=== PATIENT | female | born 1945 | race Asian ===

== ENCOUNTER 2016-09-09 06:09 | Inpatient (IN) | payer OTHER ==
[~2016-09-09] VITALS: Ht 162.6 cm; Wt 54.9 kg
[2016-09-09] MEDS ORDERED: PROPOFOL 200 MG/20 ML VIAL IV ONE (07:20)
[2016-09-09] MEDS ORDERED: ONDANSETRON 4 MG/2 ML VIAL IVP ONE (07:20)
[2016-09-09] MEDS ORDERED: SEVOFLURANE 250 ML BTL INH ONE (07:20)
[2016-09-09] MEDS ORDERED: BUPIVACAINE-MPF/EPI 0.5% 30 ML VIAL INJ ONE (07:20)
[2016-09-09] MEDS ORDERED: ACETAMINOPHEN/CODEINE 300/30MG 1 TAB PO PRN (07:35)
[2016-09-09] MEDS ORDERED: MORPHINE SULFATE 4 MG/ML SYR IM/IVP PRN (07:35)
[2016-09-09] MEDS ORDERED: ONDANSETRON 4 MG/2 ML VIAL IVP PRN (07:35)
[2016-09-09] MEDS ORDERED: fentaNYL 0.05 MG/ML VIAL ONE (07:37)
[2016-09-09] MEDS ORDERED: MIDAZOLAM 2 MG/2 ML VIAL ONE (07:37)
[2016-09-09] MEDS ORDERED: MORPHINE SULFATE 4 MG/ML SYR ONE (07:38)
[2016-09-09] MEDS ORDERED: LIPITOR10 MG PO (07:52)
[2016-09-09] MEDS ORDERED: IRBESARTAN300 MG PO (07:54)
[2016-09-09] MEDS ORDERED: PRECOSE25 MG PO (07:55)
[2016-09-09] MEDS ORDERED: PRANDIN1 MG PO (07:55)
[2016-09-09] MEDS ORDERED: LOPRESSOR25 MG PO (07:56)
[2016-09-09] MEDS ORDERED: NORVASC5 MG PO (07:57)
[2016-09-09] MEDS ORDERED: MORPHINE SULFATE 4 MG/ML SYR IVP PRN ×2 (08:05)
[2016-09-09] MEDS ORDERED: METOCLOPRAMIDE 10 MG/2 ML INJ VIAL IVP PRN (08:05)
[2016-09-09] MEDS ORDERED: MIDAZOLAM 2 MG/2 ML VIAL IV ONE (08:05)
[2016-09-09] MEDS ORDERED: MORPHINE SULFATE 2 MG/ML SYR IVP PRN (08:05)
--- NOTE | 2016-09-09 09:28 | NUR ---
FAXED INITIAL REVIEW TO [facility] [phone] PHONE JOLENE [phone]
--- NOTE | 2016-09-09 09:45 | NUR ---
2 OR NURSES BROUGHT PT TO THE FLOOR. S/P VAGINAL HYSTERECTOMY/ AP REPAIR. JIGNA GAVE REPORT. PT IS AWAKE AND ORIENTED. SHE SPEAKS CHINESES. DAUGHTER AND SON IN LAW AT BEDSIDE. PT IS AXOX4, USUALLY AMBULATES WITH WALKER AT HOME. WALKER IS HERE AT BEDSIDE. SHE CURRENTLY HAS A WARREN CATH, IV ON R AC 20G NS. SKIN IS INTACT. SHE IS WEARING A PAD. VERY LITTLE DRAINAGE, PINK TINTED. SCD'S IN PLACE. SHE IS WEARING GLASSES. NO DENTURES. PERSONAL BELONGINGS IN DRAWER. WANTED TO GO TO THE BATHROOM. ASSISTED PT TO THE BATHROOM. HER GAIT IS STEADY. SHE WALKED BACK TO HER BED WITH HER WALKER. PUT HER BACK IN BED. V/S WITHIN NORMAL RANGE. WILL CONTINUE TO MONITOR PT.
--- NOTE | 2016-09-09 10:20 | NUR ---
ADMINISTERED MORPHINE 3MG FOR MODERATE PAIN 12/05. PT TOLERATED WELL. WILL CONTINUE TO MONITOR PT.
--- NOTE | 2016-09-09 10:30 | NUR ---
VS: 9:45 96.8F, 126/64, 78HR, 16, 97% 10:00 96.8F, 106/59, 71 HR, 16, 96% 10:15 96.7F, 112/59, 70HR, 16, 96% 10:30 96.9F, 106/61, 53 HR, 16, 92%
[2016-09-09 10:36] VITALS: BP 126/64
[2016-09-09] MEDS ORDERED: PNEUMOCOCCAL VACCINE 23 MCG/0.5 ML VIAL IMVAC SCH (10:45)
[2016-09-09] MEDS ORDERED: INFLUENZA VIRUS VACCINE QUAD 0.5 ML SYR IMVAC PRN (10:45)
--- NOTE | 2016-09-09 11:53 | NUR ---
V/S: 11:00 97.0F, 108/64, 53, 16, 94% 11:30 97.0F, 110/64, 58, 16, 95%
--- NOTE | 2016-09-09 11:57 | NUR ---
PT SLEEPING. NO SIGNS OF DISTRESS. DAUGHTER AND SON IN LAW AT BEDSIDE. WILL CONTINUE TO MONITOR PT.
--- NOTE | 2016-09-09 12:10 | NUR ---
D/C'D WARREN CATHETER. ABOUT 600 ML IN BAG, PALE YELLOW, CLEAR. PT TOLERATED WELL. WILL CONTINUE TO MONITOR PT.
--- NOTE | 2016-09-09 13:00 | NUR ---
PT IS RESTING COMFORTABLY. NO SIGNS OF DISTRESS. DIDN'T EAT LUNCH. LITTLE BIT NAUSEATED. OFFERED HER ZOFRAN. SHE REFUSED. WILL CONTINUE TO MONITOR PT.
[2016-09-09 13:24] VITALS: BP 112/67
--- NOTE | 2016-09-09 14:29 | NUR ---
PT WAS IN PAIN, ADMINISTERED PAIN MEDS. PT TOLERATED WELL. PT NEEDED TO USE THE BATHROOM. ASSISTED PT TO THE RESTROOM. ASSISTED PT BACK TO BED.
[2016-09-09 16:00] VITALS: BP 107/53
--- NOTE | 2016-09-09 17:13 | NUR ---
NO URINE YET. CALLED DR. VARGAS. HE GAVE AN ORDER FOR WARREN REINSERTION. DAUGHTER WANTS TO WAIT AND SEE IF SHE CAN GO TO THE BATHROOM ON HER OWN. WILL WAIT UNTIL PT IS READY.
--- NOTE | 2016-09-09 17:45 | NUR ---
ADMINISTERED THE WARREN CATH. PT TOLERATED WELL. URINE FILLING UP IN WARREN BAG. WILL CONTINUE TO MONITOR PT.
--- NOTE | 2016-09-09 18:21 | NUR ---
PT ATE VERY LITTLE OF HER DINNER TRAY 20%. PT HAS NO COMPLAINTS OF PAIN. WILL CONTINUE TO MONITOR PT.
--- NOTE | 2016-09-09 19:05 | NUR ---
ENDORSED PT TO THE ESCORT PATIENTS NURSE AT BEDSIDE FOR CONTINUITY OF CARE. PT IS RESTING COMFORTABLY. DAUGHTER AT BEDSIDE. PT HAS NO COMPLAINTS. NO PAIN AT THIS TIME. PT IS IN STABLE CONDITION.
--- NOTE | 2016-09-09 19:06 | NUR ---
RECEIVED REPORT FROM DAY SHIFT NURSE, FLORIAN EATON. PT IS AAO4, DAUGHTER AT BEDSIDE, HAS NO COMPLAIN OF PAIN. ON ROOM AIR, NO S/S OF RESPIRATORY DISTRESS/DISCOMFORT NOTED. SKIN IS INTACT, IV SITE TO THE RIGHT AC #20, SALINE LOCK, PATENT AND INTACT. NOTED A WARREN CATHETER IN PLACED AT 300 ML, INDWELLING WELL. SCD IN PLACED. PLAN OF CARE DISCUSSED, VERBALIZED UNDERSTANDING. SAFETY MEASURES CHECKED, CALL LIGHT WITHIN REACH. WILL CONTINUE TO MONITOR.
[2016-09-09 20:00] VITALS: BP 109/52
--- NOTE | 2016-09-09 20:45 | NUR ---
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 INSTRUCTED THAT WE HAVE BLUE PHONE TO USE AND TRANSLATE THE PT, VERBALIZED UNDERSTANDING. SON IN LAW ALSO MENTIONED ABOUT PAIN MEDICATION AND HOME MEDICATION THAT THE PT IS TAKING, EXPLAINED THAT I WILL FOLLOW-UP WITH THE ATTENDING DR, FAMILY MEMBER HAS VERBALIZED AGREEMENT. WILL FOLLOW UP
--- NOTE | 2016-09-09 21:00 | NUR ---
SPOKE TO DR VARGAS VIA PHONE. I MENTIONED ABOUT THE CONCERNS OF FAMILY MEMBER, PAIN MEDICATION AND HOME MEDICATION. TOLD ME TO MAKE AN ORDER FOR THE PT'S HOME MEDICATION AND PAIN MEDICATION VIA TELEPHONE ORDER.
[2016-09-09] MEDS ORDERED: HYDROcodone/APAP 5/325 MG 1 TAB TAB PO PRN (22:25)
[2016-09-10] VITALS: BP 103/40
--- NOTE | 2016-09-10 00:30 | NUR ---
AMBULATED PT TO THE TOILET ROOM WITH WALKER ASSISTED WITH 1 PERSON. PT HAS NO SIGNS OF DISTRESS, REMINDED TO USE CALL LIGHT.
--- NOTE | 2016-09-10 03:14 | NUR ---
PT IS SLEEPING HAS NO S/S OF RESPIRATORY DISTRESS/DISCOMFORT NOTED. CALL LIGHT WITHIN REACH.
[2016-09-10 04:00] VITALS: BP 125/65
--- NOTE | 2016-09-10 04:00 | NUR ---
V/S CHECKED AND STABLE. PT HAS NO COMPLAIN OF PAIN. NO S/S OF RESPIRATORY DISTRESS/DISCOMFORT.
[2016-09-10] MEDS: REPAGLINIDE 1 MG TAB PO SCH ×2 (07:30→11:30)
--- NOTE | 2016-09-10 07:30 | NUR ---
RECEIVED REPORT FROM STARCHER AND TENTER RANGE FEEDER RN. PT SLEEPING. NO S/S OF ACUTE CARDIAC/RESPIRATORY DISTRESS. SAFETY MEASURES IN PLACE, CALL LIGHT WITHIN REACH. WILL CONTINUE PLAN OF CARE AND CONTINUE TO MONITOR.
--- NOTE | 2016-09-10 07:38 | NUR ---
ENDORSED REPORT TO DAYSCTFT NURSE. PT IS IN STABLE CONDITION.
[2016-09-10 07:41] VITALS: BP 128/63
[2016-09-10] MEDS: ACARBOSE 50 MG TAB PO SCH ×2 (08:00→11:51)
[2016-09-10] MEDS ORDERED: ATORVASTATIN 20 MG TAB PO SCH (09:00)
[2016-09-10] MEDS ORDERED: DOCUSATE SODIUM 100 MG GELCAP PO SCH (09:00)
[2016-09-10] MEDS ORDERED: METOPROLOL 25 MG TAB PO SCH (09:00)
[2016-09-10] MEDS ORDERED: amLODIPine 5 MG TAB PO SCH (09:00)
--- NOTE | 2016-09-10 09:04 | NUR ---
PATIENT HAS BEEN SCREENED AND CATEGORIZED MODERATE NUTRITION RISK. PATIENT WILL BE SEEN WITHIN 3-5 DAYS OF ADMISSION. 09/11/16-09/13/[address]
--- NOTE | 2016-09-10 10:30 | NUR ---
PT REFUSED TO TAKE HER AM MEDICATIONS EXCEPT COLACE DUE TO PT STATING SHE HAS TAKEN THEM ALREADY FROM HER PURSE. WARREN CATHETER REMOVED. PT HAS NO S/S OF ACUTE DISTRESS OR DISCOMFORT. CALL LIGHT WITHIN REACH. WILL CONTINUE TO MONITOR.
--- NOTE | 2016-09-10 11:15 | NUR ---
CM NOTE CONCURRENT REVIEW FAXED TO [facility] / FAX# [phone], ATTN: JOLENE #[phone]
[2016-09-10 12:00] VITALS: BP 121/58
--- NOTE | 2016-09-10 13:00 | NUR ---
PT URINATED, SHE STATES HER VAGINAL BLEEDING HAS REDUCED. Tari [email or web address].T. MADE AWARE AND OK TO DC TO HOME TODAY OR TOMORROW IF PT FEELS COMFORTABLE. NO S/S OF ACUTE DISTRESS OR DISCOMFORT. CALL LIGHT WITHIN REACH, WILL CONTINUE TO MONITOR.
--- NOTE | 2016-09-10 14:45 | NUR ---
DISCHARGE INSTRUCTIONS PROVIDED, PT VERBALIZED UNDERSTANDING. DISCHARGE PAPERWORK SIGNED, COPY SIGNED. ARM BANDS REMOVED, IV REMOVED AND INTACT. TELE MONITOR RETURNED TO NURSING STATION. PT CHANGED INTO CLOTHES. PT HAS NO S/S OF ACUTE DISTRESS OR DISCOMFORT. PT IN STABLE CONDITION. WHEELCHAIRED PT TO FRONT LOBBY TO BE PICKED UP BY DAUGHTER.
== END 2016-09-10 14:45 | disposition home or self-care (01) | DRG 513 ==
LOC: MMU 06:09 → MTU 10:04
PROVIDERS: ADMIT Obstetrics & Gynecology; ATTEND Obstetrics & Gynecology
PROC: 0JQC0ZZ Repair Pelvic Region Subcutaneous Tissue and Fascia, Open Approach (ICD-10-PCS; 2016-09-09)
PROC: 0UT97ZZ Resection of Uterus, Via Natural or Artificial Opening (ICD-10-PCS; principal; 2016-09-09 07:30)
PROC: 0JQC0ZZ Repair Pelvic Region Subcutaneous Tissue and Fascia, Open Approach (ICD-10-PCS; 2016-09-09 07:30)
DX: N81.4 Uterovaginal prolapse, unspecified (principal); E11.9 Type 2 diabetes mellitus without complications; I10 Essential (primary) hypertension; N81.6 Rectocele